=== PATIENT | female | born 1995 | race Caucasian/White ===

== ENCOUNTER 2024-10-24 09:53 | Emergency (ER) | payer MEDICAID ==
[~2024-10-24] VITALS: Ht 165.1 cm; Wt 64.0 kg
[~2024-10-24 09:53] MED LIST: GADOTERATE MEGLUMINE 7.5 MMOL/15 ML VIAL IV ONE
[2024-10-24] MEDS ORDERED: LAMO150T2 PO (10:21)
[2024-10-24 11:22] LABS: BASOPHILS % (AUTO) 0.6 % (0-1); EOSINOPHILS # (AUTO) 0.1 X10'3 (0-0.9); EOSINOPHILS % (AUTO) 0.8 % (0-6); HEMATOCRIT 40.7 % (35.0-45.0); HEMOGLOBIN 12.7 g/dl (12.0-16.0); LYMPHOCYTES # (AUTO) 1.1 X10'3 (1.1-4.8); LYMPHOCYTES % (AUTO) 13.7 % (21-51); MEAN CORPUSCULAR HEMOGLOBIN 25.4 PG (27.0-31.0); MEAN CORPUSCULAR HGB CONC 31.1 g/dL (33.0-36.5); MEAN CORPUSCULAR VOLUME 81.4 FL (78-98); MEAN PLATELET VOLUME 7.6 FL (7.4-10.4); MONOCYTES # (AUTO) 0.4 X10'3 (0-0.9); MONOCYTES % (AUTO) 4.9 % (2-12); NEUTROPHILS # (AUTO) 6.5 X10'3 (1.8-7.7); PLATELET COUNT 396 X10'3 (140-440); RED CELL DISTRIBUTION WIDTH 18.6 % (11.5-14.5); WHITE BLOOD COUNT 8.2 X10'3 (4.5-11.0)
[2024-10-24 11:32] LABS: PROTHROMBIN TIME 10.9 SECONDS (9.0-12.0)
[2024-10-24 11:37] LABS: ALANINE AMINOTRANSFERASE 436 U/L (12-78); ALBUMIN 3.8 G/DL (3.4-5.0); ALKALINE PHOSPHATASE 116 IU/L (46-116); ANION GAP 8 (8-16); ASPARTATE AMINO TRANSFERASE 180 U/L (10-37); BILIRUBIN,TOTAL 0.5 MG/DL (0.1-1.0); BLOOD UREA NITROGEN 6 MG/DL (7-18); BUN/CREATININE RATIO 7.9 (10.0-20.0); CALCIUM 8.8 MG/DL (8.5-10.1); CHLORIDE 105 MMOL/L (99-107); CREATININE 0.76 MG/DL (0.40-0.90); ETHANOL < 10 MG/DL (<10); GLUCOSE 95 MG/DL (70-104); MAGNESIUM 2.3 MG/DL (1.5-2.4); POTASSIUM 3.7 MMOL/L (3.5-5.1); SODIUM 141 MMOL/L (135-145); TOTAL CARBON DIOXIDE 28.2 MMOL/L (24-32); TOTAL PROTEIN 7.7 G/DL (6.4-8.2); eCRCL 98 ML/MIN; eGFR 90 ML/MIN
[2024-10-24 11:46] LABS: ANISOCYTOSIS 2+; PLATELET ESTIMATE NORMAL
[2024-10-24 12:29] LABS: BILIRUBIN,URINE NEGATIVE (Neg); CLARITY,URINE CLEAR (Clear); COLOR,URINE YELLOW (Yellow); GLUCOSE, URINE NEGATIVE (Neg); KETONES,URINE NEGATIVE (Neg); LEUKOCYTE ESTERASE ,URINE NEGATIVE (Neg); NITRITES, URINE NEGATIVE (Neg); OCCULT BLOOD,URINE LARGE (Neg); PH,URINE 7.5 (4.8-8.0); PROTEIN,URINE NEGATIVE (Neg); UROBILINOGEN,URINE 0.2 E.U/dL (0.2-1.0)
[2024-10-24 12:31] LABS: UA COLLECTION TYPE URINAL
[2024-10-24 12:41] LABS: URINE AMPHETAMINE SCREEN NEGATIVE (Neg); URINE BARBITUATE SCREEN NEGATIVE (Neg); URINE BENZODIAZEPINES SCREEN NEGATIVE (Neg); URINE CANNABINOID SCREEN POSITIVE (Neg); URINE COCAINE SCREEN NEGATIVE (Neg); URINE METHADONE SCREEN NEGATIVE (Neg); URINE OPIATE SCREEN NEGATIVE (Neg); URINE PHENCYCLIDINE SCREEN NEGATIVE (Neg)
[2024-10-24 12:46] LABS: AMORPHOUS PHOSPHATES 2+; BACTERIA,URINE NONE SEEN /HPF (Neg); SQUAMOUS EPITHELIAL CELL,UR NONE SEEN /LPF (FEW); WBC,URINE 0-4 /HPF (0-4)
[2024-10-24] MEDS: acetaminophen 1,000mg/100ml IV 100 ML IV ONE (13:09)
[2024-10-24] MEDS: LORazepam 2 mg/ml vial IV ONE (13:55)
[2024-10-24] MEDS: dexamethasone sod phosphate 10mg/ml inj IV STA (17:47)
[2024-10-24] MEDS ORDERED: KEP500T PO (20:49)
[2024-10-24] MEDS ORDERED: LAMO200T2 PO (20:55)
[2024-10-24 21:13] VITALS: BP 116/73; PULSE 75; RESP 16; TEMP 98.6; O2SAT 98
== END 2024-10-24 21:15 | disposition home or self-care (01) ==
LOC: ER 09:54 → EDBD 09:54 → ER 21:15
DX: R56.9 Unspecified convulsions (principal)
CPT/HCPCS: 36415; 70450; 70553; 80053; 80305; 80320; 81001; 83605; 83735; 85008; 85025; 85610; 96365; 96366; 96375; 99285; A9575; J0131; J1100; J2060

== ENCOUNTER 2024-12-01 21:53 | Emergency (ER) | payer MEDICAID ==
[~2024-12-01] VITALS: Ht 165.1 cm; Wt 60.3 kg
[~2024-12-01 21:53] MED LIST changes: -GADOTERATE MEGLUMINE 7.5 MMOL/15 ML VIAL IV ONE; +KEP500T PO; +LAMO150T2 PO
[2024-12-01 21:54] VITALS: TEMP 97.9
[2024-12-01 22:41] LABS: ALBUMIN 3.1 G/DL (3.4-5.0); ANION GAP 6 (8-16); BLOOD UREA NITROGEN 12 MG/DL (7-18); BUN/CREATININE RATIO 16.7 (10.0-20.0); CALCIUM 8.9 MG/DL (8.5-10.1); CHLORIDE 106 MMOL/L (99-107); CREATININE 0.72 MG/DL (0.40-0.90); GLUCOSE 112 MG/DL (70-104); SODIUM 143 MMOL/L (135-145); TOTAL CARBON DIOXIDE 30.9 MMOL/L (24-32); eCRCL 104 ML/MIN; eGFR > 90 ML/MIN
[2024-12-01 22:49] LABS: POTASSIUM 3.7 MMOL/L (3.5-5.1)
[2024-12-01 23:23] LABS: BASOPHILS % (AUTO) 0.1 % (0-1); EOSINOPHILS % (AUTO) 0.4 % (0-6); HEMATOCRIT 31.2 % (35.0-45.0); HEMOGLOBIN 9.9 g/dl (12.0-16.0); LYMPHOCYTES # (AUTO) 3.3 X10'3 (1.1-4.8); LYMPHOCYTES % (AUTO) 30.8 % (21-51); MEAN CORPUSCULAR HEMOGLOBIN 25.7 PG (27.0-31.0); MEAN CORPUSCULAR HGB CONC 31.7 g/dL (33.0-36.5); MEAN CORPUSCULAR VOLUME 81.2 FL (78-98); MEAN PLATELET VOLUME 7.2 FL (7.4-10.4); MONOCYTES # (AUTO) 0.6 X10'3 (0-0.9); MONOCYTES % (AUTO) 5.9 % (2-12); NEUTROPHILS # (AUTO) 6.8 X10'3 (1.8-7.7); NEUTROPHILS % (AUTO) 62.8 % (42-75); PLATELET COUNT 535 X10'3 (140-440); RED BLOOD COUNT 3.84 X10'6 (4.20-5.60); RED CELL DISTRIBUTION WIDTH 17.4 % (11.5-14.5); WHITE BLOOD COUNT 10.8 X10'3 (4.5-11.0)
[2024-12-01 23:35] LABS: APTT 25 SECONDS (22-32); PROTHROMBIN TIME 10.1 SECONDS (9.0-12.0)
[2024-12-02 01:01] LABS: URINE HCG NEGATIVE (NEG)
[2024-12-02 01:12] LABS: BILIRUBIN,URINE NEGATIVE (Neg); CLARITY,URINE CLEAR (Clear); COLOR,URINE YELLOW (Yellow); GLUCOSE, URINE NEGATIVE (Neg); KETONES,URINE NEGATIVE (Neg); LEUKOCYTE ESTERASE ,URINE NEGATIVE (Neg); NITRITES, URINE NEGATIVE (Neg); OCCULT BLOOD,URINE NEGATIVE (Neg); PH,URINE 6.5 (4.8-8.0); PROTEIN,URINE NEGATIVE (Neg); UROBILINOGEN,URINE 0.2 E.U/dL (0.2-1.0)
[2024-12-02 01:24] LABS: UA COLLECTION TYPE CLN CATCH MIDSTREAM
[2024-12-02 01:28] LABS: URINE AMPHETAMINE SCREEN NEGATIVE (Neg); URINE BARBITUATE SCREEN NEGATIVE (Neg); URINE BENZODIAZEPINES SCREEN NEGATIVE (Neg); URINE CANNABINOID SCREEN POSITIVE (Neg); URINE COCAINE SCREEN NEGATIVE (Neg); URINE METHADONE SCREEN NEGATIVE (Neg); URINE OPIATE SCREEN NEGATIVE (Neg); URINE PHENCYCLIDINE SCREEN NEGATIVE (Neg)
[2024-12-02] MEDS: acetaminophen 325mg tablet PO ONE (02:27)
[2024-12-02 02:42] VITALS: BP 108/73; PULSE 64; RESP 16; O2SAT 99
== END 2024-12-02 02:45 | disposition home or self-care (01) ==
LOC: ER 21:54
DX: R53.1 Weakness (principal); R56.9 Unspecified convulsions; Z79.899 Other long term (current) drug therapy
CPT/HCPCS: 36415; 70450; 71045; 80048; 80305; 81003; 81025; 85025; 85610; 85730; 86885; 86900; 86901; 93005; 99285

== ENCOUNTER 2025-07-11 07:10 | Emergency (ER) | payer MEDICAID ==
[~2025-07-11] VITALS: Ht 165.1 cm; Wt 62.0 kg
[2025-07-11 07:15] VITALS: TEMP 98.1
--- NOTE | 2025-07-11 07:26 | Physician Documentation ---
History of Present Illness General Chief Complaint: Seizure Stated Complaint: SEIZURE Time Seen by MD: 07:20 Primary Medical Doctor: [facility] Mode of Arrival: EMS, Stretcher History of Present Illness Initial Comments Patient is a 30-year-old female with a history of brain tumor who has had seizures for the last six years. The patient states she has had three seizures in the last six years. The patient this morning has a proximally 1 minute tonic-clonic seizure with a postictal period afterwards. The patient states she has been taking her seizure medicine. The patient takes lamotrigine. The pat ient denies any fevers or chills she denies any urinary symptoms the patient's symptoms are improved Medication Reconciliation Allergies: Coded Allergies: No Known Allergies (Unverified , 07/11/25) Scheduled Lamotrigine* (Lamictal*), 1 TAB PO BID, (Reported) Levetiracetam (Keppra), 1 TAB PO Q12H Past Medical History Past Medical History: Seizures Review of Systems All Other Systems at this time: Reviewed and Negative Physical Exam Physical Exam Vital Signs: Temperature: 98.1, Source: Oral, Heart Rate: 107, Respiratory Rate: 16, BP: 114/64, Pulse Oximetry: 96, Weight: 62.000 Oxygen Flow Rate: 0 Physical Exam VITALS: Reviewed and as above. GENERAL: Alert, no apparent distress. HEENT: Normocephalic, atraumatic, PERRL, EOMI, dry mucosa, no erythema RESPIRATORY: Lungs clear, normal breath sounds, no respiratory distress. CHEST: No accessory muscle use, no retractions CV: Regular rate, rhythm, no edema, no murmur, No: JVD GI: Soft, non-tender, bowels sounds present, no rebound, guarding, or rigidity BACK: No CVA tenderness, or swelling MUSCULOSKELETAL: No deformities, no edema SKIN: Warm and dry, no rash NEURO: Oriented x4, No motor or sensory deficit PSYCH: Normal mood and affect, no agitation Progress Results/Orders Results/Orders Completed Orders - OHLGNENY PUGH MD Cbc/Diff (07/11/25 07:31) Urinalysis, Cult If Indicated (07/11/25 07:31) Lamotrigine Tablet (Lamictal Tablet) (07/11/25 07:35) Ibuprofen Tablet (Motrin Tablet) (07/11/25 08:45) Vital Signs 07/11/25 07/11/25 07/11/25 07/11/25 07:15 07:23 07:26 08:16 Temp 98.1 Pulse 107 85 88 Resp 16 16 16 16 B/P (MAP) 114/64 114/64 (81) 115/74 (88) Pulse Ox 96 95 95 O2 Flow Rate 0 0 0 07/11/25 07/11/25 09:17 10:12 Pulse 103 84 Resp 16 18 B/P (MAP) 99/58 (72) 117/65 Pulse Ox 98 98 O2 Flow Rate 0 Laboratory Tests Test 07/11/25 07:41 07/11/25 07:44 07/11/25 08:06 White Blood Count 7.6 Red Blood Count 4.81 Hemoglobin 10.1 L Hematocrit 32.2 L Mean Corpuscular Volume 67.0 L Mean Corpuscular Hemoglobin 20.9 L Mean Corpuscular Hemoglobin Concent 31.3 L Red Cell Distribution Width 18.6 H Platelet Count 452 H Mean Platelet Volume 6.9 L Neutrophils (%) (Auto) 69.6 Lymphocytes (%) (Auto) 21.9 Monocytes (%) (Auto) 6.5 Eosinophils (%) (Auto) 1.3 Basophils (%) (Auto) 0.7 Neutrophils # (Auto) 5.3 Lymphocytes # (Auto) 1.7 Monocytes # (Auto) 0.5 Eosinophils # (Auto) 0.1 Basophils # (Auto) 0.1 CBC Comment Platelet Estimate Increased Red Blood Cell Morphology Perf Hypochromasia 1+ Basophilic Stippling Anisocytosis 2+ Microcytosis 2+ Schistocytes Few Urine Specimen Description Non-specified Urine Color Yellow Urine Clarity Clear Urine pH 6.0 Urine Specific Whiteside 1.025 Urine Protein Negative Urine Glucose (UA) Negative Urine Ketones Negative Urine Occult Blood Negative Urine Nitrite Negative Urine Bilirubin Negative Urine Urobilinogen 0.2 Urine Leukocyte Esterase Negative Urine Culture Indicated Not ind Volume Urine Centrifuged 10 ml Urine Comment Bedside Hemoglobin 11.9 L Bedside Hematocrit 35 Bedside Sodium 141 Bedside Potassium 3.9 Bedside Chloride 104 Bedside Total CO2 25 Bedside Anion Gap 12 Bedside Blood Urea Nitrogen 9 Bedside Creatinine 0.8 Bedside Estimated GFR (eGFR) 84 BUN/Creatinine Ratio 11.3 Bedside Glucose 104 Bedside Ionized Calcium (Ace) 1.26 Medical Decision Making Additional information obtaine: old records Findings The patient with a history of seizures had an another seizure while she was on Lamictal, the patient was well-appearing in no distress the patient was given an additional dose of 200 mg of Lamictal her labs were reviewed they are unremarkable and her urine was unremarkable, the patient will be advised to follow up with her neurologist. The patient's prior hospitalizations has been reviewed the patient's pulse oximetry was interpreted as normal and adequate and her monitoring coordinator was interpreted as a sinus rhythm Differential Diagnosis Seizure, pseudo-seizure, syncope, arrhythmia Departure Disposition: 01 HOME / SELF CARE / HOMELESS Impression: Primary Impression: Seizure disorder Discharge Instructions: Seizure, Adult Referrals: NO PRIMARY CARE PROVIDER (PCP) Signature Scribe Signature: no scribe Attestation: The note accurately reflects work and decisions made by me.Genny Carter MD 07/12/25 07:23 GENNY CARTER MD Jul 11, 2025 07:26
[2025-07-11 07:47] LABS: MEAN PLATELET VOLUME 6.9 FL (7.4-10.4); RED CELL DISTRIBUTION WIDTH 18.6 % (11.5-14.5)
[2025-07-11 08:19] LABS: ISTAT ANION GAP 12.0 (8-12); ISTAT BUN 9.0 mg/dL (7-18); ISTAT CL 104.0 mmol/L (99-107); ISTAT CREATININE 0.8 mg/dL (0.6-1.1); ISTAT GLUCOSE 104.0 mg/dL (70-104); ISTAT HGB 11.9 g/dl (12.0-16.0); ISTAT Hct 35.0 %PCV (35-45); ISTAT IONIZED CALCIUM 1.26 mmol/L (1.03-1.32); ISTAT K 3.9 mmol/L (3.5-5.1); ISTAT NA 141.0 mmol/L (135-145); ISTAT TOTAL CO2 25.0 mmol/L (24-32); ISTAT eGFR 84.0 ML/MIN; POC BUN/CREATININE RATIO 11.3 (6.6-38.0)
[2025-07-11 08:25] LABS: LEUKOCYTE ESTERASE ,URINE NEGATIVE (Neg); NITRITES, URINE NEGATIVE (Neg); OCCULT BLOOD,URINE NEGATIVE (Neg)
[2025-07-11 08:28] LABS: PLATELET ESTIMATE INCREASED
[2025-07-11 08:39] LABS: UA COLLECTION TYPE NON-SPECIFIED
[2025-07-11 10:12] VITALS: BP 117/65; PULSE 84; RESP 18; O2SAT 98
== END 2025-07-11 10:14 | disposition home or self-care (01) ==
LOC: ER 07:11
DX: G40.409 Other generalized epilepsy and epileptic syndromes, not intractable, without status epilepticus (principal)
CPT/HCPCS: 36415; 80047; 81003; 85008; 85025; 99285